=== PATIENT | female | born 1995 | race Two or more races ===

== ENCOUNTER 2021-10-28 18:42 | Emergency (ER) | payer OTHER ==
[~2021-10-28] VITALS: Ht 180.3 cm; Wt 47.2 kg
== END 2021-10-28 22:31 | disposition home or self-care (01) ==
LOC: ER 18:42
DX: R20.2 Paresthesia of skin (principal); Z91.040 Latex allergy status

== ENCOUNTER 2022-07-11 04:17 | Emergency (ER) | payer OTHER ==
[~2022-07-11] VITALS: Ht 154.9 cm; Wt 49.0 kg
== END 2022-07-11 05:42 | disposition home or self-care (01) ==
LOC: ER 04:17
DX: R00.2 Palpitations (principal)

== ENCOUNTER 2024-09-07 14:14 | Outpatient (CLI) | payer OTHER | END 2024-09-07 14:15 | disposition home or self-care (01) | LOC: PRENATAL 14:14 | PROVIDERS: ATTEND Obstetrics & Gynecology Maternal & Fetal Medicine | DX: O44.00 Complete placenta previa NOS or without hemorrhage, unspecified trimester (principal); Z3A.19 19 weeks gestation of pregnancy ==

== ENCOUNTER 2024-12-04 10:12 | Outpatient (CLI) | payer OTHER | END 2024-12-04 10:13 | disposition home or self-care (01) | LOC: PRENATAL 10:12 | PROVIDERS: ATTEND Obstetrics & Gynecology Maternal & Fetal Medicine | DX: O26.843 Uterine size-date discrepancy, third trimester (principal); O36.8130 Decreased fetal movements, third trimester, not applicable or unspecified; Z3A.32 32 weeks gestation of pregnancy ==